=== PATIENT | male | born 1980 | race African-American/Black ===

== ENCOUNTER 2017-05-09 10:11 | Emergency (ER) | payer SELFPAY ==
[2017-05-09] MEDS ORDERED: Alum Hydrox/Mag Hydrox/Simeth 15 ML, Lidocaine 2% 5 ML PO ONE ×2 (10:44)
--- NOTE | 2017-05-09 10:52 | EDM.PDOC ---
ED HPI GENERAL MEDICAL PROBLEM - General Chief Complaint: Abdominal Pain Stated Complaint: PT WOULD LIKE TO BE SEEN Time Seen by Provider: 05/09/17 10:45 Source of Information: Reports: Patient History Limitations: Reports: No Limitations - History of Present Illness INITIAL COMMENTS - FREE TEXT/NARRATIVE: HISTORY AND PHYSICAL: History of present illness: Patient is a 36-year-old male that presents to the emergency room with vague complaints of abdominal pain. Patient reported he started having upper abdominal pain yesterday afternoon after eating. Patient reported that he had one episode of vomiting immediately after the pain started. As not had any nausea, vomiting, diarrhea since 5 PM yesterday. Patient reports having a dull "burning" pain and points to his epigastric/mid abdominal area. Non-tender to palpation. Denies any dysuria or urinary complications. Denies any change in bowel pattern or consistency. Denies any chest pain, shortness of breath, headache, or vision change. Patient denies any previous medical problems and does not take any prescribed or [id number] medications. Triage nurse did report that upon patient arrival his initial concern was that he wanted a work release to go back to work. When the triage nurse explained that the ED does not do work releases through the emergency department he proceeded to want to be evaluated for abdominal pain. Patient does have a appointment tomorrow afternoon at [facility] which was previously scheduled by the patient for a work release. Review of systems: As per history of present illness and below otherwise all systems reviewed and negative. Past medical history: As per history of present illness and as reviewed below otherwise noncontributory. Surgical history: As per history of present illness and as reviewed below otherwise noncontributory. Social history: No reported history of drug or alcohol abuse. Family history: As per history of present illness and as reviewed below otherwise noncontributory. Physical exam: Gen.: Nontoxic, well nourished, well developed 36-year-old male. Able to speak in full sentences without shortness of breath. Alert and oriented HEENT: Atraumatic, normocephalic, pupils reactive, negative for conjunctival pallor or scleral icterus, mucous membranes moist, throat clear, neck supple, nontender, trachea midline. Lungs: Clear to auscultation, breath sounds equal bilaterally, chest nontender. Heart: S1S2, regular rate and rhythm Abdomen: Soft, nondistended, nontender. No rebound tenderness. Negative for masses. Negative for costovertebral tenderness. Pelvis: Stable nontender. Genitourinary: Deferred. Rectal: Deferred. Extremities: Atraumatic, negative for cords or calf pain. Neurovascular unremarkable. Neuro: Awake, alert, oriented. Cranial nerves II through XII unremarkable. Cerebellum unremarkable. Motor and sensory unremarkable throughout. Exam nonfocal. Patient reports his pain is resolved after the GI cocktail. Explained to patient lab results and that this abdominal pain is likely viral in nature, patient voices understanding. Blood pressure is down to 133/88 at this time. Asked patient to keep his appointment tomorrow with his primary care provider to fill out his work release form. Patient voices understanding and is agreeable. Diagnostics: CBC, CMP, H. pylori Therapeutics: GI cocktail Impression: Abdominal pain Definitive disposition and diagnosis as appropriate pending reevaluation and review of above. Onset Date: 05/08/17 Onset Time: 17:00 Location: Reports: Abdomen Quality: Reports: Dull Abdominal Pain Score (Numeric/FACES): 5 - Related Data Allergies Allergy/AdvReac Type Severity Reaction Status Date / Time No Known Allergies Allergy Verified 05/09/17 10:33 Home Meds: Home Meds . [No Known Home Meds] 05/09/17 [History] Past Medical History - Past Health History Medical/Surgical History: Denies Medical/Surgical History Social & Family History - Family History Family Medical History: Noncontributory - Tobacco Use Smoking Status *Q: Never Smoker Second Hand Smoke Exposure: No - Caffeine Use Caffeine Use: Reports: Coffee - Recreational Drug Use Recreational Drug Use: No ED ROS GENERAL - Review of Systems Review Of Systems: ROS reveals no pertinent complaints other than HPI. ED EXAM, GENERAL - Physical Exam Exam: See Below (See dictation) Course - Vital Signs Last Recorded V/S: Last Vital Signs Temp 36.6 C 05/09/17 10:31 Pulse 73 05/09/17 10:31 Resp 20 05/09/17 10:31 BP 153/96 H 05/09/17 10:31 Pulse Ox 98 05/09/17 10:31 - Orders/Labs/Meds Labs: Laboratory Tests 05/09/17 05/09/17 05/09/17 Range/Units 10:52 10:52 10:52 WBC 3.93 L (4.0-11.0) K/uL RBC 5.13 (4.50-5.90) M/uL Hgb 16.6 (13.0-17.0) g/dL Hct 47.6 (38.0-50.0) % MCV 92.8 (80.0-98.0) fL MCH 32.4 H (27.0-32.0) pg MCHC 34.9 (31.0-37.0) g/dL RDW Std Deviation 39.6 (28.0-62.0) fl RDW Coeff of Eloy 12 (11.0-15.0) % Plt Count 202 (150-400) K/uL MPV 9.10 (7.40-12.00) fL Neut % (Auto) 37.6 L (48.0-80.0) % Lymph % (Auto) 46.3 H (16.0-40.0) % [place] % (Auto) 12.0 (0.0-15.0) % Eos % (Auto) 3.6 (0.0-7.0) % Baso % (Auto) 0.5 (0.0-1.5) % Neut # (Auto) 1.5 (1.4-5.7) K/uL Lymph # (Auto) 1.8 (0.6-2.4) K/uL [place] # (Auto) 0.5 (0.0-0.8) K/uL Eos # (Auto) 0.1 (0.0-0.7) K/uL Baso # (Auto) 0.0 (0.0-0.1) K/uL Nucleated RBC % 0.0 /100WBC Nucleated RBCs # 0 K/uL Sodium 139 (136-146) mmol/L Potassium 3.7 (3.5-5.1) mmol/L Chloride 101 (98-110) mmol/L Carbon Dioxide 31 (21-31) mmol/L BUN 10 (6.0-23.0) mg/dL Creatinine 1.0 (0.6-1.5) mg/dL Est Cr Clr Drug Dosing 102.12 mL/min Estimated GFR (MDRD) > 60.0 ml/min Glucose 92 (60-110) mg/dL Calcium 10.0 (8.8-10.8) mg/dL Total Bilirubin 0.8 (0.1-1.5) mg/dL AST 23 (5-40) IU/L ALT 22 (8-54) IU/L Alkaline Phosphatase 87 (40-150) Total Protein 7.6 (6.0-8.0) g/dL Albumin 4.4 (3.5-5.0) g/dL Globulin 3.2 (2.0-3.5) g/dL Albumin/Globulin Ratio 1.4 (1.3-2.8) H. pylori IgG Antibody NEGATIVE (NEG) Meds: Medications Discontinued Medications Generic Name Dose Route Start Last Admin Trade Name Freq PRN Reason Stop Dose Admin Al Hydroxide/Mg Hydroxide 15 0 ml 05/09/17 10:44 05/09/17 11:00 ml/ Lidocaine HCl 5 ml PO 05/09/17 10:45 20 each ONETIME ONE Administration Departure - Departure Time of Disposition: 11:27 Disposition: Home, Self-Care 01 Condition: Good Clinical Impression: Abdominal pain Qualifiers: Abdominal location: epigastric Qualified Code(s): R10.13 - Epigastric pain - Discharge Information Referrals: PCP,None [Primary Care Provider] - Forms: ED Department Discharge Additional Instructions: The following information is given to patients seen in the emergency department who are being discharged to home. This information is to outline your options for follow-up care. We provide all patients seen in our emergency department with a follow-up referral. The need for follow-up, as well as the timing and circumstances, are variable depending upon the specifics of your emergency department visit. If you don't have a primary care physician on staff, we will provide you with a referral. We always advise you to contact your personal physician following an emergency department visit to inform them of the circumstance of the visit and for follow-up with them and/or the need for any referrals to a consulting specialist. The emergency department will also refer you to a specialist when appropriate. This referral assures that you have the opportunity for followup care with a specialist. All of these measure are taken in an effort to provide you with optimal care, which includes your followup. Under all circumstances we always encourage you to contact your private physician who remains a resource for coordinating your care. When calling for followup care, please make the office aware that this follow-up is from your recent emergency room visit. If for any reason you are refused follow-up, please contact the [facility] emergency department at and ask to speak to the emergency department charge nurse. [facility] Primary care- Internal Medicine and Family [address] [address] 1. Please keep your appointment with her primary care provider tomorrow. They will have to fill out your work release paperwork. 2. These keep a bland diet for the next 24 hours. May take a Prilosec over-the- counter daily if your epigastric pain continues and notify her primary care provider presents 3. Return to the ED as needed as discussed
[2017-05-09 11:19] LABS: CHLORIDE,CL 101 mmol/L (98-110); SODIUM,NA 139 mmol/L (136-146)
[2017-05-09 11:40] VITALS: BP 189/102
== END 2017-05-09 11:40 | disposition home or self-care (01) ==
LOC: MW.ED 10:11
DX: R10.13 Epigastric pain (principal)
CPT/HCPCS: 36415; 80053; 85025; 86677; 99284; A9270; 99283

== ENCOUNTER 2018-10-03 10:25 | Emergency (ER) | payer OTHER ==
--- NOTE | 2018-10-03 11:14 | EDM.PDOC ---
ED HPI GENERAL MEDICAL PROBLEM - General Chief Complaint: Respiratory Problem Stated Complaint: COUGH,DIZZY Time Seen by Provider: 10/03/18 10:28 Source of Information: Reports: Patient History Limitations: Reports: No Limitations - History of Present Illness INITIAL COMMENTS - FREE TEXT/NARRATIVE: Presents reporting a three-day history of runny nose, headache, dizziness, sore throat, cough which interrupts his sleep. He did have a flu shot, he does not smoke and he is otherwise healthy without chronic medical problems. No fever, breathing problems or chest pain. Headache Pain Score (Numeric/FACES): 9 - Related Data Allergies Allergy/AdvReac Type Severity Reaction Status Date / Time No Known Allergies Allergy Verified 10/03/18 10:41 Home Meds: Home Meds guaiFENesin/Codeine Phosphate [Cheratussin AC Syrup] 10 ml PO Q4HR PRN #236 liquid 10/03/18 [Rx] Past Medical History - Past Health History Medical/Surgical History: Denies Medical/Surgical History Social & Family History - Family History Family Medical History: Noncontributory - Tobacco Use Smoking Status *Q: Never Smoker - Caffeine Use Caffeine Use: Reports: Coffee - Recreational Drug Use Recreational Drug Use: No ED ROS GENERAL - Review of Systems Review Of Systems: ROS reveals no pertinent complaints other than HPI. ED EXAM, GENERAL - Physical Exam Exam: See Below Exam Limited By: No Limitations General Appearance: Alert, No Apparent Distress Eye Exam: Bilateral Eye: Normal Inspection Ears: Normal External Exam, Normal TMs Nose: Normal Inspection. No: Nasal Drainage Throat/Mouth: Other (Mild pharyngeal erythema, no swelling or exudates) Head: Atraumatic, Normocephalic Neck: Normal Inspection, Supple, Non-Tender. No: Lymphadenopathy (L), Lymphadenopathy (R) Respiratory/Chest: No Respiratory Distress, Lungs Clear, Normal Breath Sounds Cardiovascular: Normal Peripheral Pulses, Regular Rate, Rhythm GI/Abdominal: Soft Extremities: Normal Inspection, Normal Range of Motion Neurological: Alert, Oriented Psychiatric: Normal Affect, Normal Mood Skin Exam: Warm, Dry, Intact, Normal Color, No Rash Course - Vital Signs Last Recorded V/S: Last Vital Signs Temp 37.1 C 10/03/18 10:37 Pulse 114 H 10/03/18 10:37 Resp 18 10/03/18 10:37 BP 142/98 H 10/03/18 10:37 Pulse Ox 96 10/03/18 10:37 - Orders/Labs/Meds Orders: Active Orders 24 hr Category Date Time Status STREP SCRN A RAPID W CULT CONF [RM] Stat Lab 10/03/18 10:50 Received Departure - Departure Time of Disposition: 11:22 Disposition: Home, Self-Care 01 Condition: Good Clinical Impression: Coryza virus - Discharge Information Referrals: Franci Romero MD [Primary Care Provider] - Additional Instructions: 1. Push oral clear fluids and rest. 2. Tylenol or Motrin as needed for body aches and discomfort 3. Cough syrup before bed as needed. No driving or operating machinery 4. Follow-up in primary care - My Orders Last 24 Hours: My Active Orders 10/03/18 10:50 STREP SCRN A RAPID W CULT CONF [RM] Stat - Assessment/Plan Last 24 Hours: My Active Orders 10/03/18 10:50 STREP SCRN A RAPID W CULT CONF [RM] Stat
[2018-10-03 11:48] VITALS: BP 134/87
== END 2018-10-03 11:30 | disposition home or self-care (01) ==
LOC: MW.ED 10:25
DX: J00 Acute nasopharyngitis [common cold] (principal)
CPT/HCPCS: 87081; 87880-QW; 99283

== ENCOUNTER 2021-05-28 18:18 | Emergency (ER) | payer SELFPAY ==
[2021-05-28] MEDS ORDERED: Sodium Chloride 0.9% 10 ML Syringe FLUSH PRN (20:09)
[2021-05-28] MEDS ORDERED: Ondansetron 4 MG/2 ML SDV IVPUSH ONE ×2 (20:09→21:43)
[2021-05-28] MEDS ORDERED: Sodium Chloride 0.9% 1,000 ML IV ONE (20:09)
[2021-05-28] MEDS ORDERED: Sodium Chloride 0.9% 2.5 ML Syringe FLUSH PRN (20:09)
[2021-05-28] MEDS ORDERED: Ketorolac 15 MG/ML SDV IVPUSH ONE (20:09)
--- NOTE | 2021-05-28 20:46 | EDM.PDOC ---
ED HPI GENERAL MEDICAL PROBLEM - General Chief Complaint: Respiratory Problem Stated Complaint: SHORTNESS OF BREATH, VOMITTING Time Seen by Provider: 05/28/21 20:03 - History of Present Illness INITIAL COMMENTS - FREE TEXT/NARRATIVE: HISTORY AND PHYSICAL: History of present illness: This is a healthy 41-year-old gentleman with no significant history for hypertension, diabetes, liver, lung, kidney problems who is had no abdominal or chest surgeries in the past who presents ER today secondary to generalized weakness, nausea and vomiting x1, shortness of breath earlier today which has resolved while in the ED, feeling cold all throughout his body that all started today. Patient reports he has had no recent fevers, shakes, chills, abdominal pain or chest pain. Patient reports that he has had 1-2 loose watery bowel movements earlier today. Patient reports that he felt cold all throughout his body and that he felt dehydrated. Patient reports decreased p.o. intake. Patient has not had his coronavirus vaccination as of yet. Patient is unsure if he has had any Covid exposures. Patient reports that he has been able to move his bowels and has denied any bloody stool or dark black stools. Patient reports no melena. Patient denies coffee-ground emesis or hematemesis. Review of systems: As per history of present illness and below otherwise all systems reviewed and negative. Past medical history: As per history of present illness and as reviewed below otherwise noncontributory. Surgical history: As per history of present illness and as reviewed below otherwise noncontributory. Social history: No reported history of drug abuse. Family history: As per history of present illness and as reviewed below otherwise noncontributory. Physical exam: This patient was seen and evaluated during the 2019 SARS-CoV-2 novel coronavirus pandemic period. Community viral transmission is ongoing at time of this encounter and the emergency department is operating under pandemic response procedures. Constitutional: Patient is oriented to person, place, and time. Appears well- developed and well-nourished. No distress. HEENT: Moist mucous membranes Head: Normocephalic and atraumatic Eyes: Right eye exhibits no discharge. Left eye exhibits no discharge. No scleral icterus Neck: Normal range of motion. No tracheal deviation present. Cardiovascular: Normal rate and regular rhythm. Pulmonary: Effort normal, no respiratory distress. Abd: Soft, nondistended, no rebound/guarding, no psoas or obturator signs, no tenderness at Mcberney's point, no Li's sign. Pt does not present with an exam that would be consistent with an acute surgical abdomen at this time. Nontender to palpation Musculoskeletal: Normal range of motion Neurologic: Alert and oriented to person, place and time. Skin: [place], warm and dry. Psychiatric: Normal mood and affect. Behavior is normal. Judgment and thought content normal. Nursing note and vital signs have been reviewed Diagnostics: CBC, CMP, Covid, chest x-ray, EKG Chest Xray: Normal cardiac silhouette No infiltrates or effusions identified. No PTX No evidence of acute bony fracture. As interpreted by ER MD: Pastora May 28, 2021 8:22 PM: EKG: As interpreted by ER physician: Pastora: Nonspecific ST-T wave abnormalities Normal axis No evidence of ST elevation DE Normal sinus rhythm heart rate of 68 CBC, CMP within normal limits. Covid negative Therapeutics: NSS x1 L, Zofran, Toradol Assessment and plan: 41-year-old gentleman who presents ER today with multiple vague complaints including weakness, feeling cold all throughout his body, diarrhea and vomiting. Unclear whether or not this may be related to a viral illness. Patient will have a Covid test performed. We will evaluate patient with a CBC CMP. Patient be hydrated and given Zofran and Toradol for his nausea and diffuse body aches and weakness. After labs, and IV fluids, the patient will be evaluated. Patient's labs in the ED were all within normal limits. Patient's Covid test is negative. Patient reports he feels significant improved after the IV fluids. At this time, given normal labs, negative Covid, normal EKG and chest x-ray feel the patient is stable for discharge to home with no further need for emergent evaluation. Patient will need urgent outpatient evaluation for his primary care physician for further management of his symptoms if they should persist. Reassessment at the time of disposition demonstrates that the patient is in no acute distress. The patient has remained stable throughout the entire ED visit and is without objective evidence for acute process requiring urgent intervention or hospitalization. The patient is stable for discharge, counseling is provided as documented above, discussed symptomatic treatment and specific conditions for return. I have spoken with the patient/caregiver and discussed todays findings, in addition to providing specific details for the plan of care. Questions are answered and there is agreement with the plan. Definitive disposition and diagnosis as appropriate pending reevaluation and review of above. - Related Data Allergies Allergy/AdvReac Type Severity Reaction Status Date / Time No Known Allergies Allergy Verified 05/28/21 19:28 Past Medical History - Past Health History Medical/Surgical History: Denies Medical/Surgical History Cardiovascular History: Reports: Hypertension Social & Family History - Family History Family Medical History: No Pertinent Family History - Tobacco Use Tobacco Use Status *Q: Never Tobacco User - Caffeine Use Caffeine Use: Reports: Coffee - Recreational Drug Use Recreational Drug Use: No ED ROS GENERAL - Review of Systems Review Of Systems: See Below ED EXAM, GENERAL - Physical Exam Exam: See Below Course - Vital Signs Last Recorded V/S: Last Vital Signs Temp 97.2 F 05/28/21 19:29 Pulse 70 05/28/21 19:29 Resp 16 05/28/21 19:29 BP 169/113 H 05/28/21 19:29 Pulse Ox 96 05/28/21 19:29 - Orders/Labs/Meds Orders: Active Orders 24 hr Category Date Time Status Vital Signs [RC] Q1HR Care 05/28/21 20:46 Active Sodium Chloride 0.9% [Saline Flush] Med 05/28/21 20:09 Active 10 ml FLUSH ASDIRECTED PRN Sodium Chloride 0.9% [Saline Flush] Med 05/28/21 20:09 Active 2.5 ml FLUSH ASDIRECTED PRN Saline Lock Insert [OM.PC] Stat Oth 05/28/21 20:10 Ordered Medication Orders Sodium Chloride (Sodium Chloride 0.9% 10 Ml Syringe) 10 ml FLUSH ASDIRECTED PRN PRN Reason: Keep Vein Open Sodium Chloride (Sodium Chloride 0.9% 2.5 Ml Syringe) 2.5 ml FLUSH ASDIRECTED PRN PRN Reason: Keep Vein Open Labs: Laboratory Tests 05/28/21 05/28/21 05/28/21 Range/Units 19:21 20:30 20:30 WBC 5.04 (4.0-11.0) K/uL RBC 4.80 (4.50-5.90) M/uL Hgb 15.8 (13.0-17.0) g/dL Hct 44.6 (38.0-50.0) % MCV 92.9 (80.0-98.0) fL MCH 32.9 H (27.0-32.0) pg MCHC 35.4 (31.0-37.0) g/dL RDW Std Deviation 41.6 (28.0-62.0) fl RDW Coeff of Eloy 12 (11.0-15.0) % Plt Count 253 (150-400) K/uL MPV 9.60 (7.40-12.00) fL Neut % (Auto) 40.9 L (48.0-80.0) % Lymph % (Auto) 46.2 H (16.0-40.0) % [place] % (Auto) 11.1 (0.0-15.0) % Eos % (Auto) 1.4 (0.0-7.0) % Baso % (Auto) 0.4 (0.0-1.5) % Neut # (Auto) 2.1 (1.4-5.7) K/uL Lymph # (Auto) 2.3 (0.6-2.4) K/uL [place] # (Auto) 0.6 (0.0-0.8) K/uL Eos # (Auto) 0.1 (0.0-0.7) K/uL Baso # (Auto) 0.0 (0.0-0.1) K/uL Nucleated RBC % 1.0 /100WBC Nucleated RBCs # 0 K/uL Sodium 137 (136-148) mmol/L Potassium 4.2 (3.5-5.1) mmol/L Chloride 101 (98-107) mmol/L Carbon Dioxide 25.7 (21.0-32.0) mmol/L BUN 14 (7.0-18.0) mg/dL Creatinine 1.0 (0.8-1.3) mg/dL Est Cr Clr Drug Dosing 100.38 mL/min Estimated GFR (MDRD) > 60.0 ml/min Glucose 116 H (74-106) mg/dL Calcium 8.9 (8.5-10.1) mg/dL Total Bilirubin 0.9 (0.2-1.0) mg/dL AST 34 (15-37) IU/L ALT 48 (14-63) IU/L Alkaline Phosphatase 80 (46-116) U/L Troponin I < 0.050 (0.000-0.056) ng/mL Total Protein 7.7 (6.4-8.2) g/dL Albumin 4.2 (3.4-5.0) g/dL Globulin 3.5 (2.6-4.0) g/dL Albumin/Globulin Ratio 1.2 (0.9-1.6) Lipase 70 L (73-393) U/L SARS-CoV-2 RNA (RACH) NEGATIVE (NEGATIVE) Meds: Medications Generic Name Dose Route Start Last Admin Trade Name Freq PRN Reason Stop Dose Admin Sodium Chloride 10 ml 05/28/21 20:09 Sodium Chloride 0.9% 10 Ml Syringe FLUSH ASDIRECTED PRN Keep Vein Open Sodium Chloride 2.5 ml 05/28/21 20:09 Sodium Chloride 0.9% 2.5 Ml Syringe FLUSH ASDIRECTED PRN Keep Vein Open Discontinued Medications Generic Name Dose Route Start Last Admin Trade Name Freq PRN Reason Stop Dose Admin Sodium Chloride 1,000 mls @ 999 mls/hr 05/28/21 20:09 05/28/21 20:31 Normal Saline IV 05/28/21 21:09 999 mls/hr .Bolus ONE Administration Ketorolac Tromethamine 15 mg 05/28/21 20:05/28/21 20:32 Ketorolac 15 Mg/Ml Sdv IVPUSH 05/28/21 20:10 15 mg ONETIME ONE Administration Ondansetron HCl 4 mg 05/28/21 20:09 05/28/21 20:31 Ondansetron 4 Mg/2 Ml Sdv IVPUSH 05/28/21 20:10 4 mg ONETIME ONE Administration Departure - Departure Time of Disposition: 21:42 Disposition: Home, Self-Care 01 Condition: Good Clinical Impression: Viral illness, Hypertension - Discharge Information Instructions: Viral Illness, Adult, Managing Your Hypertension Referrals: PCP,None [Primary Care Provider] - Forms: ED Department Discharge Additional Instructions: Your seen and evaluated in the ER today secondary to symptoms that could be consistent with a viral illness. All your blood tests were within normal limits. Your chest x-ray and EKG were all normal. Your blood pressure is elevated here in the ED and should be followed up with your primary care physician. You will be given a prescription for Zofran help you with your nausea. Please get plenty rest, drink plenty of fluids, make an appointment see your doctor in the next 1 to 2 days for reevaluation. The following information is given to patients seen in the emergency department who are being discharged to home. This information is to outline your options for follow-up care. We provide all patients seen in our emergency department with a follow-up referral. The need for follow-up, as well as the timing and circumstances, are variable depending upon the specifics of your emergency department visit. If you don't have a primary care physician on staff, we will provide you with a referral. We always advise you to contact your personal physician following an emergency department visit to inform them of the circumstance of the visit and for follow-up with them and/or the need for any referrals to a consulting specialist. The emergency department will also refer you to a specialist when appropriate. This referral assures that you have the opportunity for follow-up care with a specialist. All of these measure are taken in an effort to provide you with optimal care, which includes your follow-up. Under all circumstances we always encourage you to contact your private physician who remains a resource for coordinating your care. When calling for follow-up care, please make the office aware that this follow-up is from your recent emergency room visit. If for any reason you are refused follow-up, please contact the [facility] Emergency Department at and asked to speak to the emergency department charge nurse. [facility] - Primary Care [address] [place] [id number] [place] [address] Sepsis Event Note (ED) - Evaluation Sepsis Screening Result: No Definite Risk - Focused Exam Vital Signs: Vital Signs Temp Pulse Resp BP Pulse Ox 05/28/21 19:29 97.2 F 70 16 169/113 H 96 - My Orders Last 24 Hours: My Active Orders 05/28/21 20:09 Sodium Chloride 0.9% [Saline Flush] 10 ml FLUSH ASDIRECTED PRN Sodium Chloride 0.9% [Saline Flush] 2.5 ml FLUSH ASDIRECTED PRN 05/28/21 20:10 Saline Lock Insert [OM.PC] Stat 05/28/21 20:46 Vital Signs [RC] Q1HR - Assessment/Plan Last 24 Hours: My Active Orders 05/28/21 20:09 Sodium Chloride 0.9% [Saline Flush] 10 ml FLUSH ASDIRECTED PRN Sodium Chloride 0.9% [Saline Flush] 2.5 ml FLUSH ASDIRECTED PRN 05/28/21 20:10 Saline Lock Insert [OM.PC] Stat 05/28/21 20:46 Vital Signs [RC] Q1HR
[2021-05-28 21:10] LABS: BLOOD UREA NITROGEN,BUN 14 mg/dL (7.0-18.0); CARBON DIOXIDE,CO2 25.7 mmol/L (21.0-32.0); CHLORIDE,CL 101 mmol/L (98-107); GLUCOSE RANDOM 116 mg/dL (74-106); LIPASE 70 U/L (73-393); POTASSIUM,K 4.2 mmol/L (3.5-5.1); SODIUM,NA 137 mmol/L (136-148)
--- NOTE | 2021-05-28 21:22 | CR ---
INDICATION: Cough, shortness of breath TECHNIQUE: PA and lateral views of the chest COMPARISON: None FINDINGS: The lungs are clear. There is no pleural effusion or pneumothorax. The cardiomediastinal silhouette is normal. The osseous structures are unremarkable. IMPRESSION: No acute intrathoracic process. Dictated by Vicente Wheeler MD @ 05/28/2021 9:20:26 PM (Electronically Signed)
[2021-05-28 22:19] VITALS: BP 152/104; PULSE 60
== END 2021-05-28 22:19 | disposition home or self-care (01) ==
LOC: MW.ED 18:18
DX: B34.9 Viral infection, unspecified (principal); I10 Essential (primary) hypertension; Z20.822 Contact with and (suspected) exposure to COVID-19
CPT/HCPCS: 36415; 71046; 80053; 83690; 84484; 85025; 87635; 93005; 96374; 96375; 96376; 99285; J1885; J2405; J7030; U0002

== ENCOUNTER 2022-02-17 00:02 | Emergency (ER) | payer SELFPAY ==
[2022-02-17 00:54] LABS: BLOOD UREA NITROGEN,BUN 13 mg/dL (7.0-18.0); CARBON DIOXIDE,CO2 25.3 mmol/L (21.0-32.0); CHLORIDE,CL 104 mmol/L (98-107); GLUCOSE RANDOM 141 mg/dL (74-106); POTASSIUM,K 2.9 mmol/L (3.5-5.1); SODIUM,NA 142 mmol/L (136-148)
[2022-02-17 00:59] LABS: ESTIMATED GFR 114 mL/min (>60)
[2022-02-17 06:06] VITALS: BP 98/63; PULSE 58
== END 2022-02-17 06:10 | disposition home or self-care (01) ==
LOC: MW.ED 00:02
DX: F10.129 Alcohol abuse with intoxication, unspecified (principal); E87.6 Hypokalemia; Y90.8 Blood alcohol level of 240 mg/100 ml or more
CPT/HCPCS: 36415; 80053; 80307; 85025; 99284

== ENCOUNTER 2024-01-16 11:59 | Emergency (ER) | payer SELFPAY ==
[2024-01-16 12:17] VITALS: BP 173/120; PULSE 77
[2024-01-16 13:03] LABS: BASOPHILS ABSOLUTE AUTO 0.03 K/uL (0.00-0.20); BASOPHILS PERCENT AUTO 0.6 % (0.0-1.0); EOSINOPHILS ABSOLUTE AUTO 0.18 K/uL (0.00-0.45); EOSINOPHILS PERCENT AUTO 3.3 % (0.0-6.0); HEMATOCRIT 45.9 % (42.0-52.0); HEMOGLOBIN 16.1 g/dL (14.0-18.0); IMMATURE GRAN ABSOLUTE AUTO 0.05 K/uL (0.00-0.05); IMMATURE GRAN PERCENT AUTO 0.9 % (0.0-0.4); LYMPHOCYTES ABSOLUTE AUTO 2.16 K/uL (1.00-4.80); LYMPHOCYTES PERCENT AUTO 39.9 % (24.0-44.0); MEAN CORPUSCULAR HEMOGLOBIN 32.1 pg (28.0-32.0); MEAN CORPUSCULAR HGB CONC 35.1 g/dL (32.0-36.0); MEAN CORPUSCULAR VOLUME 91.6 fL (83.0-99.0); MEAN PLATELET VOLUME 8.8 fL (9.4-12.4); MONOCYTES ABSOLUTE AUTO 0.61 K/uL (0.00-0.80); MONOCYTES PERCENT AUTO 11.3 % (0.0-8.0); NEUTROPHILS ABSOLUTE AUTO 2.38 K/uL (1.80-7.70); PLATELET COUNT,PLT 246 K/uL (150-400); RED BLOOD CELL COUNT 5.01 M/uL (4.52-5.90); WHITE BLOOD CELL COUNT,WBC 5.41 K/uL (3.9-11.3)
[2024-01-16 13:13] LABS: APPEARANCE,URINE CLEAR; BILIRUBIN,URINE NEGATIVE (NEGATIVE); COLOR,URINE YELLOW; GLUCOSE,URINE NEGATIVE (NEGATIVE); KETONES,URINE NEGATIVE (NEGATIVE); LEUKOCYTE ESTERASE,URINE NEGATIVE (NEGATIVE); NITRITE,URINE NEGATIVE (NEGATIVE); OCCULT BLOOD,URINE TRACE-INTACT (NEGATIVE); PROTEIN,URINE 30 mg/dL (NEGATIVE)
[2024-01-16 13:43] LABS: ALBUMIN 3.7 g/dL (3.4-5.0); BILIRUBIN TOTAL 0.4 mg/dL (0.2-1.0); CARBON DIOXIDE,CO2 25.5 mmol/L (21.0-32.0); EST CRCL DRUG DOSING (CG) 98.35 mL/min; POTASSIUM,K 3.8 mmol/L (3.5-5.1); PROTEIN TOTAL,TP 7.3 g/dL (6.4-8.2)
[2024-01-16 13:50] LABS: BACTERIA,URINE FEW (NEGATIVE); CALCIUM OXALATE CRYSTALS,URINE FEW (NEGATIVE); EPITHELIAL CELLS,URINE RARE (NONE-FEW); MUCUS,URINE LIGHT (NONE-MOD); RBC,URINE 0-2 (0-2/HPF); WBC,URINE 0-1 (0-5/HPF)
[2024-01-16 14:42] LABS: C. TRACHOMATIS BY PCR NOT DETECTED; N. GONORRHOEAE BY PCR NOT DETECTED
== END 2024-01-16 14:01 | disposition home or self-care (01) ==
LOC: MW.ED 11:59
DX: Z11.3 Encounter for screening for infections with a predominantly sexual mode of transmission (principal); I10 Essential (primary) hypertension; Z75.8 Other problems related to medical facilities and other health care; Z79.899 Other long term (current) drug therapy
CPT/HCPCS: 36415; 80053; 81001; 85025; 87491; 87591; 99283